=== PATIENT | male | born 1985 | race Caucasian/White ===

== ENCOUNTER 2016-07-22 18:45 | Emergency (ER) | payer BC ==
[2016-07-22 19:00] VITALS: BP 111/78
[2016-07-22] MEDS ORDERED: Diltiazem 25 MG/5 ML SDV ONE (19:36)
[2016-07-22] MEDS ORDERED: Sodium Chloride 0.9% 10 ML Syringe FLUSH PRN (19:38)
[2016-07-22] MEDS ORDERED: Diltiazem 25 MG/5 ML SDV IVPUSH ONE ×2 (19:39→20:00)
--- NOTE | 2016-07-22 20:01 | EDM.PDOC ---
ED HPI Allergic Reaction - General Chief Complaint: Allergic Reaction Stated Complaint: DIZZY/SOB Time Seen by Provider: 07/22/16 19:00 Source of Information: Reports: Patient, RN notes reviewed - History of Present Illness INITIAL COMMENTS - FREE TEXT/NARRATIVE: 31-year-old male since to the ED with complaints of very mild nonspecific dizziness and very mild shortness of breath. He states this all started about an hour to an hour and half ago. He had a hepatitis vaccination a couple of hours ago not long before this all started. He wonders if he is having some type of reaction to immunization. He is healthy with no history of heart or lung problems. He's not been recently sick with cough sore throat fever chills or other unusual symptoms. He later stated upon repeat questioning and review of systems that he had noticed very mild palpitations or a "buzzing-type feeling " in his chest on the way to the emergency department but that subsequently resolved. - Related Data Allergies/ADRs: Allergies Allergy/AdvReac Type Severity Reaction Status Date / Time Sulfa (Sulfonamide Allergy Other Verified 07/22/16 19:00 Antibiotics) Home Meds: Home Meds Diltiazem [Cardizem CD] 180 mg PO DAILY #30 cap.cd 07/22/16 [Rx] Past Medical History - Past Health History Medical/Surgical History: Denies Medical/Surgical History Social & Family History - Family History Family Medical History: Noncontributory - Tobacco Use Smoking Status *Q: Never Smoker Second Hand Smoke Exposure: No - Caffeine Use Caffeine Use: Reports: Coffee, Soda - Recreational Drug Use Recreational Drug Use: No ED ROS ALLERGIC REACTION - Review of Systems Review Of Systems: See Below Constitutional: Denies: fever, chills, diaphoresis HEENT: Denies: Sinus problem, Throat pain Respiratory: Reports: Shortness of Breath (mild, gone). Denies: Wheezing, Pleuritic Chest Pain, Cough Cardiovascular: Reports: Palpitations (mild, gone). Denies: Chest pain GI/Abdominal: Denies: Abdominal pain, Diarrhea, Nausea, Vomiting Musculoskeletal: Denies: neck pain, shoulder pain, arm pain Skin: Reports: no symptoms Neurological: Reports: Dizziness (mild). Denies: Difficulty Walking, Change in Speech ED EXAM GENERAL NO PERIP PULSE - Physical Exam Exam: See Below General Appearance: alert, no apparent distress Throat/Mouth: Normal inspection, Normal oropharynx Head: atraumatic. No: facial swelling Neck: supple, full range of motion. No: lymphadenopathy (L), lymphadenopathy (R ) Respiratory/Chest: no respiratory distress, lungs clear, normal breath sounds Cardiovascular: tachycardia, irregularly irregular Back Exam: No: CVA tenderness (L), CVA tenderness (R) Extremities: normal inspection. No: pedal edema, leg pain Neurological: alert, oriented, no motor/sensory deficits Skin Exam: Warm, Dry, Normal color, No rash EKG INTERPRETATION EKG Date: 07/22/16 Rhythm: a-fib [place]: RAD-right axis deviation QRS: normal ST-T: normal Course - Vital Signs Last Recorded V/S: Last Vital Signs Temp 97.8 F 07/22/16 18:54 Pulse 81 07/22/16 18:54 Resp 18 07/22/16 18:54 BP 111/78 07/22/16 18:54 Pulse Ox 99 07/22/16 18:54 - Orders/Labs/Meds Orders: Active Orders 24 hr Category Date Time Status EKG 12 Lead [EKG Documentation Completion] [RC] STAT Care 07/22/16 19:25 Active Peripheral IV Care [RC] . DIRECTED Care 07/22/16 19:38 Active Peripheral IV Insertion Adult [OM.PC] Stat Oth 07/22/16 19:38 Ordered Labs: Laboratory Tests 07/22/16 07/22/16 07/22/16 Range/Units 19:30 19:30 19:30 WBC 9.55 H (4.23-9.07) K/mm3 RBC 5.88 (4.63-6.08) M/mm3 Hgb 16.8 (13.7-17.5) gm/L Hct 47.7 (40.1-51.0) % MCV 81.1 (79.0-92.2) fl MCH 28.6 (25.7-32.2) pg MCHC 35.2 (32.2-35.5) g/dl RDW Std Deviation 38.2 (35.1-43.9) fL Plt Count 296 (163-337) K/mm3 MPV 10.0 (9.4-12.3) fl Neut % (Auto) 52.5 (34.0-67.9) % Lymph % (Auto) 37.0 (21.8-53.1) % [place] % (Auto) 7.0 (5.3-12.2) % Eos % (Auto) 2.3 (0.8-7.0) Baso % (Auto) 0.9 (0.1-1.2) % Neut # 5.01 (1.78-5.38) K/mm3 Lymph # 3.53 (1.32-3.57) K/mm3 [place] # 0.67 (0.30-0.82) K/mm3 Eos # 0.22 (0.04-0.54) K/mm3 Baso # 0.09 H (0.01-0.08) K/mm3 PT 10.7 (8.0-13.0) SECONDS INR 0.98 APTT 28 (22-36) SECONDS Sodium 140 (136-145) mEq/L Potassium 4.0 (3.5-5.1) mEq/L Chloride 104 (98-107) mEq/L Carbon Dioxide 29 (21-32) mEq/L Anion Gap 11.0 (5-15) BUN 15 (7-18) mg/dL Creatinine 0.9 (0.7-1.3) mg/dL Est Cr Clr Drug Dosing 122.79 mL/min Estimated GFR (MDRD) > 60 (>60) mL/min BUN/Creatinine Ratio 16.7 (14-18) Glucose 97 (74-106) mg/dL Calcium 9.3 (8.5-10.1) mg/dL Total Bilirubin 0.4 (0.2-1.0) mg/dL AST 25 (15-37) U/L ALT 27 (16-63) U/L Alkaline Phosphatase 65 (46-116) U/L Total Protein 7.7 (6.4-8.2) g/dl Albumin 4.4 (3.4-5.0) g/dl Globulin 3.3 gm/dL Albumin/Globulin Ratio 1.3 (1-2) TSH 3rd Generation (0.358-3.74) uIU/mL 07/22/16 Range/Units 19:30 WBC (4.23-9.07) K/mm3 RBC (4.63-6.08) M/mm3 Hgb (13.7-17.5) gm/L Hct (40.1-51.0) % MCV (79.0-92.2) fl MCH (25.7-32.2) pg MCHC (32.2-35.5) g/dl RDW Std Deviation (35.1-43.9) fL Plt Count (163-337) K/mm3 MPV (9.4-12.3) fl Neut % (Auto) (34.0-67.9) % Lymph % (Auto) (21.8-53.1) % [place] % (Auto) (5.3-12.2) % Eos % (Auto) (0.8-7.0) Baso % (Auto) (0.1-1.2) % Neut # (1.78-5.38) K/mm3 Lymph # (1.32-3.57) K/mm3 [place] # (0.30-0.82) K/mm3 Eos # (0.04-0.54) K/mm3 Baso # (0.01-0.08) K/mm3 PT (8.0-13.0) SECONDS INR APTT (22-36) SECONDS Sodium (136-145) mEq/L Potassium (3.5-5.1) mEq/L Chloride (98-107) mEq/L Carbon Dioxide (21-32) mEq/L Anion Gap (5-15) BUN (7-18) mg/dL Creatinine (0.7-1.3) mg/dL Est Cr Clr Drug Dosing mL/min Estimated GFR (MDRD) (>60) mL/min BUN/Creatinine Ratio (14-18) Glucose (74-106) mg/dL Calcium (8.5-10.1) mg/dL Total Bilirubin (0.2-1.0) mg/dL AST (15-37) U/L ALT (16-63) U/L Alkaline Phosphatase (46-116) U/L Total Protein (6.4-8.2) g/dl Albumin (3.4-5.0) g/dl Globulin gm/dL Albumin/Globulin Ratio (1-2) TSH 3rd Generation 1.864 (0.358-3.74) uIU/mL Meds: Medications Discontinued Medications Generic Name Dose Route Start Last Admin Trade Name Freq PRN Reason Stop Dose Admin Aspirin 324 mg 07/22/16 20:58 07/22/16 21:05 Aspirin PO 07/22/16 20:59 324 mg ONETIME ONE Administration Diltiazem HCl Confirm 07/22/16 19:36 07/22/16 19:38 Diltiazem Administered 07/22/16 19:37 Not Given Dose 25 mg .ROUTE .STK-MED ONE Diltiazem HCl 10 mg 07/22/16 19:39 07/22/16 19:41 Diltiazem IVPUSH 07/22/16 19:40 10 mg ONETIME ONE Administration Diltiazem HCl 10 mg 07/22/16 20:00 07/22/16 20:07 Diltiazem IVPUSH 07/22/16 20:01 10 mg ONETIME ONE Administration Diltiazem HCl 60 mg 07/22/16 20:54 07/22/16 21:06 Cardizem PO 07/22/16 20:55 60 mg ONETIME ONE Administration Sodium Chloride 10 ml 07/22/16 19:38 07/22/16 19:30 Saline Flush FLUSH 10 ml ASDIRECTED PRN Administration Keep Vein Open - Re-Assessments/Exams Free Text/Narrative Re-Assessment/Exam: 07/23/16 04:03. once hospital monitor was applied this did confirm a strawhat sizer relation with rapid ventricular response. EKG also showed atrophic with heart rate of 129. The hospital monitor he is running in the 120s 130s up to low 140s. A she gives a fairly good history that this started about an hour and half ago based primarily on the symptoms of mild dizziness, shortness of breath had not been there previously. He also did notice slight palpitation feeling in route to ED by the time of my initial exam he was not feeling any palpitations with the aid show fibrillation and RVR present. Therefore I cannot be absolutely certain as to when this really did start. We did give him 10 mg diltiazem IV and then did slow his rate down to 100-110. That was followed with a second dose of 10 mg IV about 20-30 minutes later. Heart rate coming down into the 90s it was determined that he really did not need to be admitted into the hospital. Patient would really prefer to go home. I've given him 60 mg diltiazem oral and provided a prescription take 180 milligrams daily. He'll take his first dose this evening upon filling the prescription and then continue that every morning. I've advised that he obtain a nondramatic blood pressure cuff and check blood pressure and heart rates a couple of times daily, keep a log for his regular medical provider. For now he will do aspirin 325 mg daily. I have informed him that if he remains in the atrial fibrillation he should be started on a higher level of blood thinner to help decrease clot and stroke risk. Have advised that he followup with his regular medical provider in 2-3 days. Cardioversion was considered but the patient does not want that at this time and also there would be some clot risk with exact time onset of atrial fib. uncertain. We do not have the ability of trans esophageal echo to rule out clot prior to cardioversion. Departure - Departure Time of Disposition: 20:55 Disposition: Home, Self-Care 01 Condition: fair Clinical Impression: Atrial fibrillation with RVR Prescriptions: Diltiazem [Cardizem CD] 180 mg PO DAILY #30 cap.cd Instructions: Atrial Fibrillation, [id number] Referrals: Lisa Shaikh PA-C [Primary Care Provider] - Forms: ED Department Discharge Additional Instructions: Cardiac moniter and EKG shows atrial fibrillation. Your rate was initially high , in the 120's and 130's. this was brought down to a more normal rate with diltiazem IV. Been given 80 mg diltiazem by mouth and prescription for 100 mg daily has been sent to [place] pharmacy at the [facility] [place]. Take your first dose of the long acting 180 mg dose tonight and than continue a AM as prescribed. call for appointment to see Dr. Tidwell later this week. Take daily aspirin 325 mg for now. Buy an electronic blood pressure cuff and try to check your blood pressure and heart rate at least twice daily and keep a log for Dr. Tidwell. If your heart rate is consistently growing more than 110 per minute return to ED as needed or if symptoms otherwise worsening in any way. - My Orders Last 24 Hours: My Active Orders 07/22/16 19:25 EKG 12 Lead [EKG Documentation Completion] [RC] STAT 07/22/16 19:38 Peripheral IV Care [RC] . DIRECTED Peripheral IV Insertion Adult [OM.PC] Stat - Assessment/Plan Last 24 Hours: My Active Orders 07/22/16 19:25 EKG 12 Lead [EKG Documentation Completion] [RC] STAT 07/22/16 19:38 Peripheral IV Care [RC] . DIRECTED Peripheral IV Insertion Adult [OM.PC] Stat
[2016-07-22] MEDS ORDERED: Aspirin 81 MG Tab.Chew PO ONE (20:58)
== END 2016-07-22 21:14 | disposition home or self-care (01) ==
LOC: JD.ED 18:45
DX: I48.91 Unspecified atrial fibrillation (principal); Z88.2 Allergy status to sulfonamides; Z79.899 Other long term (current) drug therapy
CPT/HCPCS: 36415; 80053; 84443; 85025; 85610; 85730; 93005; 96374; 99285; A9270; J7050; J3490